=== PATIENT | female | born 1980 | race Asian ===

== ENCOUNTER 2016-12-06 07:37 | Day surgery (SDC) | payer OTHER ==
[2016-12-06] MEDS ORDERED: LACTATED RINGERS 1,000 ML ONE (08:12)
[2016-12-06] MEDS ORDERED: IV START KIT ONE (08:13)
[2016-12-06] MEDS ORDERED: LACTATED RINGERS 1,000 ML IV SCH (08:15)
[2016-12-06] MEDS ORDERED: PROPOFOL 40 ML IV ONE (09:03)
[2016-12-06] MEDS ORDERED: LIDOCAINE Viscous 2% 15 ML UDCUP ONE (09:05)
[2016-12-06] MEDS ORDERED: PROPOFOL 20 ML IV ONE (09:46)
[2016-12-06 14:12] LABS: HELICOBACTER PYLORII DETECTION NEGATIVE (NEGATIVE)
--- NOTE | 2016-12-08 10:16 | SURGPATH ---
[facility] [address] [place] [id number] Patient Name: MOLLY HENDRICKS MR#: [id number] : 1980 Gender: F Specimen #: [id number] Collected: 12/06/2016 Received: 12/07/2016 Reported: 12/08/2016 Submitting Phys: RODRI SCHAEFER Copy To Phys: [facility] Clinical History / Pre-Operative Diagnosis: ABDOMINAL PAIN; HEMOCCULT POSITIVE STOOLS; CONSTIPATION; BLOATING Specimen Source / Surgical Procedure Performed: #1-DUODENAL BIOPSY; #2-GASTRIC FUNDUS BIOPSY Interpretation: 1. DUODENUM, BIOPSY: - SMALL BOWEL MUCOSA WITH NO DIAGNOSTIC ABNORMALITY 2. STOMACH, FUNDUS, BIOPSY: - GASTRIC MUCOSA WITH NO DIAGNOSTIC ABNORMALITY Electronically Signed Out Maureen Anderson M.D. Gross Description: #1 The specimen is received in a formalin filled container labeled with the patient's name and "duodenal biopsy". Two jain biopsies are each 0.5 cm. Totally embedded in cassette #1. #2 The specimen is received in a formalin filled container labeled with the patient's name and "gastric fundus biopsy". Two jain biopsies are 0.3 and 0.4 cm. Totally embedded in cassette #2. Keren Pearson Microscopic Description: 1. Sections show fragments of small bowel mucosa with long and well preserved villous processes. There is no significant inflammation and lymphocytes are not increased within the epithelium. No infectious organisms are identified and there is no dysplasia. 2. Sections show fragments of gastric mucosa. There is normal mucosal architecture and no significant inflammation. No Helicobacter organisms are identified and there is no intestinal metaplasia or dysplasia. 1: [id number] 2: 71234 R10.84
== END 2016-12-06 11:00 | disposition home or self-care (01) ==
LOC: SDC 07:37
PROVIDERS: ATTEND Family Medicine
PROC: 0DJD8ZZ Inspection of Lower Intestinal Tract, Via Natural or Artificial Opening Endoscopic (ICD-10-PCS; principal; 2016-12-06)
PROC: 0DB68ZX Excision of Stomach, Via Natural or Artificial Opening Endoscopic, Diagnostic (ICD-10-PCS; principal; 2016-12-06)
PROC: 0DB98ZX Excision of Duodenum, Via Natural or Artificial Opening Endoscopic, Diagnostic (ICD-10-PCS; principal; 2016-12-06)
DX: R10.9 Unspecified abdominal pain (principal); R63.4 Abnormal weight loss; R19.4 Change in bowel habit; K59.00 Constipation, unspecified; R19.7 Diarrhea, unspecified; R19.5 Other fecal abnormalities
CPT/HCPCS: 43239; 45378; 87081; A9270; J7120